=== PATIENT | female | born 1945 | race Caucasian/White ===

== ENCOUNTER 2018-07-13 12:22 | Emergency (ER) | payer MEDICARE, OTHER ==
[~2018-07-13] VITALS: Ht 154.9 cm; Wt 72.6 kg
--- OUTSIDE RECORDS SUMMARY | ~2018-07-13 | XMS | Encounter Summary ---
Demographics + + + | Address | [address] | | | [place] [address] | + + + | Home Phone | | + + + | Preferred Language | Unknown | + + + | Marital Status | | + + + | Restoration Affiliation | MET | + + + | Race | White | + + + | Ethnic Group | Not or | + + + Author + + + | Author | [facility] | + + + | Organization | [facility] | + + + | Address | Unknown | + + + | Phone | Unavailable | + + + Support + + + + + | Name | Relationship | Address | Phone | + + + + + | Garry Rios | ECON | | | | | | [place] | | | | | [address] | | + + + + + | Chad Rios | ECON | Unknown | | + + + + + Care Team Providers + +------+ + | Care Cash Grain Farmer Name | Role | Phone | + +------+ + | Anoop Rose MD | PCP | | + +------+ + Reason for Visit AUTH/CERT +--------+--------+ + + + + | Status | Reason | Specialty | Diagnoses / | Referred By | Referred To | | | | | Procedures | Contact | Contact | +--------+--------+ + + + + | | | | | | | +--------+--------+ + + + + Encounter Details +--------+ + + + + | Date | Type | Department | Care Team | Description | +--------+ + + + + | 12/18/ | Anesthesia | [facility] | Jorge Alberto Uriarte, | | | 2018 | Event | [address] | [address] | | | | | GRISELDA MATTHEWS | [address] | | | | | [facility], | [place], [place] | | | | | [place] [address] | [address] | | | | | | [phone] | | | | | | | | +--------+ + + + + Anesthesia Record + + + + + | Procedure Name | Responsible | Anesthesia Start | Anesthesia Stop Time | | | Anesthesiologist | Time | | + + + + + | DIRECT BROWLIFT WITH | Jorge Alberto Uriarte MD | 12/18/17 1019 | 12/18/17 1057 | | BLEPHAROPLASTY | | | | | (Bilateral Eye) | | | | + + + + + +----+---+ + + | Da | T | Event | Comment | | te | i | | | | | m | | | | | e | | | +----+---+ + + | 11 | 0 | Pt. Check | Prior to anesthesia start, pt. Identified, examined, chart | | /0 | 9 | | reviewed, JUSTEN held, anesthetic plan made or approved by | | 9/ | 2 | | attending anesthesiologist. NPO status confirmed as appropriate | | 20 | 8 | | for procedure Preoperative evaluation: unchanged | | 18 | | | | +----+---+ + + | | 1 | Eq Check | Anesthesia machine checked Equipment verified | | | 0 | | | | | 1 | | | | | 9 | | | +----+---+ + + | | 1 | An Start | | | | 0 | | | | | 1 | | | | | 9 | | | +----+---+ + + | | 1 | An Start | | | | 0 | Data | | | | 1 | | | | | 9 | | | +----+---+ + + | | 1 | O2 by NC | | | | 0 | | | | | 1 | | | | | 9 | | | +----+---+ + + | | 1 | Vitals | Monitors applied Vital signs checked Patient ready for anesthesia | | | 0 | Checked | | | | 2 | | | | | 2 | | | +----+---+ + + | | 1 | Ready | | | | 0 | | | | | 2 | | | | | 2 | | | +----+---+ + + | | 1 | Abx held | Contraindicated, or not indicated for this procedure, or already | | | 0 | Medical or | receiving antibiotics | | | 2 | Surgical | | | | 2 | Reason | | +----+---+ + + | | 1 | Pause | | | | 0 | | | | | 2 | | | | | 2 | | | +----+---+ + + | | 1 | Local | | | | 0 | Anesthetic | | | | 2 | by Surgeon | | | | 3 | | | +----+---+ + + | | 1 | Incision | | | | 0 | | | | | 2 | | | | | 9 | | | +----+---+ + + | | 1 | Local | | | | 0 | Anesthetic | | | | 3 | by Surgeon | | | | 4 | | | +----+---+ + + | | 1 | Surgery end | | | | 0 | | | | | 5 | | | | | 3 | | | +----+---+ + + | | 1 | an stop | | | | 0 | data | | | | 5 | | | | | 5 | | | +----+---+ + + | | 1 | PACU Rpt | | | | 0 | Given | | | | 5 | | | | | 7 | | | +----+---+ + + | | 1 | Anesthesia | | | | 0 | End | | | | 5 | | | | | 7 | | | +----+---+ + + +------+ | Meds | +------+ + +---------+ | Name | Total | + +---------+ | midazolam | 2 mg | + +---------+ | alfentanil | 750 mcg | + +---------+ | dexamethasone | 4 mg | + +---------+ | LR | 200 mL | + +---------+ + + | Name | + + | O2 Flow Rate (Total Liters) | + + + + | No blood administrations on file. | + + +--------+ + + + | Type | Details | Placement | Removal | +--------+ + + + | Periph | 12/18/17; 916; Shadi Chou RN; | 12/18/17916 by | 12/18/171125 by | | eral | Right; Antecubital; 20 g; None; | Cherelle Chou RN | Ira De RN | | IV | No; Positive; 12/18/17; 1126 | | | +--------+ + + + | Incisi | 12/18/17; 1056; Upper; eye; | 12/18/17 1056 by | 12/18/171126 by | | on | 12/18/17; 1126 | Ira De RN | Ira De RN | +--------+ + + + documented in this encounter Social History + +-------+ +--------+------+ | Tobacco Use | Types | Packs/Day | Years | Date | | | | | Used | | + +-------+ +--------+------+ | Never Smoker | | | | | + +-------+ +--------+------+ + +---+---+---+ | Smokeless Tobacco: | | | | | Never Used | | | | + +---+---+---+ + + +---------+ + | Alcohol Use | Drinks/Week | oz/Week | Comments | + + +---------+ + | Yes | | | rare | + + +---------+ + + + + | Sex Assigned at | Date Recorded | | | | + + + | Not on file | | + + + + + + + | Job Start Date | Occupation | Industry | + + + + | Not on file | Not on file | Not on file | + + + + + + + + | Travel History | Travel Start | Travel End | + + + + + + | No recent travel history available. | + + documented as of this encounter Plan of Treatment Not on filedocumented as of this encounter Visit Diagnoses Not on filedocumented in this encounter Administered Medications + +--------+ +---------+------+------+ | Medication Order | MAR | Action | Dose | Rate | Site | | | Action | Date | | | | + +--------+ +---------+------+------+ | alfentanil (ALFENTA) injection | Given | 12/19/19 | 500 mcg | | | | INTRAPROCEDURE PRN, Starting Fri | | 18 10:22 | | | | | 12/18/17 at 1021, Until Fri | | AM PST | | | | | 12/18/17 at 1055 | | | | | | + +--------+ +---------+------+------+ +-------+ +---------+---+---+ | Given | 12/19/19 | 250 mcg | | | | | 18 10:21 | | | | | | AM PST | | | | +-------+ +---------+---+---+ +---+---+ | | | +---+---+ + +-------+ +------+---+---+ | dexamethasone (DECADRON) | Given | 12/19/19 | 4 mg | | | | injection INTRAPROCEDURE PRN, | | 18 10:22 | | | | | Starting 12/18/17 at 1022, | | AM PST | | | | | Until 12/18/17 at 1055 | | | | | | + +-------+ +------+---+---+ +---+---+ | | | +---+---+ + + + +---+---+---+ | lactated Ringers IV | given by | 12/19/19 | | | | | intravenous, INTRAPROCEDURE | | 18 10:43 | | | | | CONTINUOUS PRN, Starting Fri | anesthes | AM PST | | | | | 12/18/17 at 1012, Until Fri | iology | | | | | | 12/18/17 at 1055 | | | | | | + + + +---+---+---+ +---------+ +---+---+---+ | New Bag | 12/19/19 | | | | | | 18 10:12 | | | | | | AM PST | | | | +---------+ +---+---+---+ +---+---+ | | | +---+---+ + +-------+ +------+---+---+ | midazolam (PF) (VERSED) | Given | 12/19/19 | 1 mg | | | | injection intravenous, | | 18 10:34 | | | | | INTRAPROCEDURE PRN, Starting Fri | | AM PST | | | | | 12/18/17 at 1019, Until Fri | | | | | | | 12/18/17 at 1055 | | | | | | + +-------+ +------+---+---+ +-------+ +------+---+---+ | Given | 12/19/19 | 1 mg | | | | | 18 10:19 | | | | | | AM PST | | | | +-------+ +------+---+---+ +---+---+ | | | +---+---+ documented in this encounter"
--- OUTSIDE RECORDS SUMMARY | ~2018-07-13 | XMS | Clinical Summary ---
Demographics + + + | Address | [address] | | | [place] [address] | + + + | Home Phone | | + + + | Preferred Language | Unknown | + + + | Marital Status | | + + + | Pentecostal Affiliation | MET | + + + | Race | White | + + + | Ethnic Group | Not or | + + + Author + + + | Author | [facility] | + + + | Organization | [facility] | + + + | Address | Unknown | + + + | Phone | Unavailable | + + + Support + + + + + | Name | Relationship | Address | Phone | + + + + + | Garry Rios | ECON | | | | | | [place] | | | | | [address] | | + + + + + | Chad Rios | ECON | Unknown | | + + + + + Care Team Providers + +------+ + | Care Orthopedics Nurse Name | Role | Phone | + +------+ + | Anoop Rose MD | PP | | + +------+ + Source Comments CASSIE is fully live on both [facility] and [facility] InPatient.[facility] Allergies No Known Allergies Medications + + + +---------+------+------+-------+ | Medication | Sig | Dispensed | Refills | Star | End | Statu | | | | | | t | Date | s | | | | | | Date | | | + + + +---------+------+------+-------+ | THYROID ORAL | Take by mouth. | | 0 | | | Activ | | | | | | | | e | + + + +---------+------+------+-------+ | omeprazole 20 mg | Take 20 mg by mouth | | 0 | | | Activ | | oral capsule,delayed | once daily. | | | | | e | | release(/EC) | | | | | | | + + + +---------+------+------+-------+ | potassium chloride | Take 20 mEq by mouth | | 0 | | | Activ | | 20 mEq oral packet | once daily. | | | | | e | + + + +---------+------+------+-------+ | | Take 25 mg by mouth | | 0 | | | Activ | | hydroCHLOROthiazide | once daily. | | | | | e | | 25 mg oral tablet | | | | | | | + + + +---------+------+------+-------+ | dilTIAZem 30 mg | Take 30 mg by mouth | | 0 | | | Activ | | oral tablet | three times daily. | | | | | e | + + + +---------+------+------+-------+ | estradiol 1 mg | Take 1 mg by mouth | | 0 | | | Activ | | oral tablet | once daily. | | | | | e | + + + +---------+------+------+-------+ | calcium citrate | Take 950 mg by mouth | | 0 | | | Activ | | 200 mg (950 mg) oral | two times daily. | | | | | e | | tablet | | | | | | | + + + +---------+------+------+-------+ | | Apply a thin film to | 3.5 g | 1 | 11/0 | | Activ | | cinaywmh-tcihhxwqo-p | eyelid incisions | | | 9/20 | | e | | examethasone 3.5 | twice daily for two | | | 18 | | | | mg/g-10,000 | weeks. OK for | | | | | | | unit/g-0.1 % | pharmacist to | | | | | | | ophthalmic (eye) | substitute a | | | | | | | ointment | different ophthalmic | | | | | | | | ointment if needed | | | | | | + + + +---------+------+------+-------+ | | Take 1 tablet by | 10 | 0 | 11/0 | | Activ | | HYDROcodone-acetamin | mouth every four | tablet | | 10/29 | | e | | ophen 5-325 mg oral | hours as needed for | | | 18 | | | | tablet | severe pain. Do not | | | | | | | | exceed 3000mg | | | | | | | | acetaminophen in a | | | | | | | | 24 hour period | | | | | | + + + +---------+------+------+-------+ Active Problems + + + | Problem | Noted Date | + + + | Dermatochalasis of both upper eyelids | 10/27/2017 | + + + | Brow ptosis | 10/27/2017 | + + + Encounters +--------+ + + + + | Date | Type | Specialty | Care Team | Description | +--------+ + + + + | 07/08/ | Telephone | | Jose Luciano MD | | | 2018 | | | | | +--------+ + + + + from Last 3 Months Family History + + +------+ + | Medical History | Relation | Name | Comments | + + +------+ + | Heart defect | Father | | | + + +------+ + | Stroke | Mother | | | + + +------+ + + +------+--------+ + | Relation | Name | Status | Comments | + +------+--------+ + | Father | | | | + +------+--------+ + | Mother | | | | + +------+--------+ + Social History + +-------+ +--------+------+ | Tobacco [...] recent travel history available. | + + Last Filed Vital Signs + + + + + | Vital Sign | Reading | Time Taken | Comments | + + + + + | Blood Pressure | 135/69 | 12/18/2017 11:27 AM | | | | | PST | | + + + + + | Pulse | 61 | 12/18/2017 11:27 AM | | | | | PST | | + + + + + | Temperature | 36.4 C (97.5 F) | 12/18/2017 11:27 AM | | | | | PST | | + + + + + | Respiratory Rate | 16 | 12/18/2017 11:27 AM | | | | | PST | | + + + + + | Oxygen Saturation | 97% | 12/18/2017 11:27 AM | | | | | PST | | + + + + + | Inhaled Oxygen | - | - | | | Concentration | | | | + + + + + | Weight | 70.3 kg (155 lb) | 12/18/2017 9:01 AM | | | | | PST | | + + + + + | Height | 154.9 cm (5' 1") | 12/18/2017 9:01 AM | | | | | PST | | + + + + + | Body Mass Index | 29.29 | 12/18/2017 9:01 AM | | | | | PST | | + + + + + Plan of Treatment + + + + + | Health Maintenance | Due Date | Last Done | Comments | + + + + + | Pneumococcal | | | | | vaccination (1 of 2 | 2 | | | | - PCV13) | | | | + + + + + | Influenza (Flu) | | | | | vaccination (Season | 9 | | | | Ended) | | | | + + + + + Results Not on filefrom Last 3 Months Insurance + +--------+ +--------+ + +--------+ | Payer | Benefi | Subscriber | Effect | Phone | Address | Type | | | t Plan | ID | andree | | | | | | / | | Dates | | | | | | Group | | | | | | + +--------+ +--------+ + +--------+ | MEDICARE | MEDICA | xxxxxxxxxxx | 03/12/19 | [phone] | [address] | [address] | | | RE A & | | 12-Pre | [address] | | | [address] | | sent | | [place] | | | | | | | | [address] | | + +--------+ +--------+ + +--------+ | COMMERCIAL | INDIVI | [phone] | Effect | | | Indemn | | INDIVIDUAL | DUAL | | andree | | | ity | | | COMMER | | for | | | | | | CIAL | | all | | | | | | | | dates | | | | + +--------+ +--------+ + +--------+ + +--------+ +--------+ + + | Guarantor Name | Accoun | Relation to | Date | Phone | Billing Address | | | t Type | Patient | of | | | | | | | | | | + +--------+ +--------+ + + | Kamilah Rios | Person | Self [birth year] | | | al/Fam | | 1946 | [phone] | [place] [address] | | | krista | | | 8 (Home) | | + +--------+ +--------+ + +
--- OUTSIDE RECORDS SUMMARY | ~2018-07-13 | XMS | Encounter Summary ---
Demographics + + + | Address | [address] | | | [place] [address] | + + + | Home Phone | | + + + | Preferred Language | Unknown | + + + | Marital Status | | + + + | Mu-Ism Affiliation | MET | + + + | Race | White | + + + | Ethnic Group | Not or | + + + Author + + + | Author | [facility] | + + + | Organization | [facility] | + + + | Address | Unknown | + + + | Phone | Unavailable | + + + Support + + + + + | Name | Relationship | Address | Phone | + + + + + | Garry Rios | ECON | | | | | | [place] | | | | | [address] | | + + + + + | Chad Rios | ECON | Unknown | | + + + + + Care Team Providers + +------+ + | Care Lead Network Architect Name | Role | Phone | + +------+ + | Anoop Rose MD | PCP | | + +------+ + Encounter Details +--------+ + + + + | Date | Type | Department | Care Team | Description | +--------+ + + + + | 12/22/ | Pharmacy | [facility] | | | | 2018 | Visit | [address] | | | | | | [address] | | | | | | [place], [place] | | | | | | [address] | | | | | | [phone] | | | +--------+ + + + + Social History + +-------+ +--------+------+ | [...] Visit Diagnoses Not on filedocumented in this encounter"
--- OUTSIDE RECORDS SUMMARY | ~2018-07-13 | XMS | Encounter Summary ---
Demographics + + + | Address | [address] | | | [place] [address] | + + + | Home Phone | | + + + | Preferred Language | Unknown | + + + | Marital Status | | + + + | Evangelical Affiliation | MET | + + + | Race | White | + + + | Ethnic Group | Not or | + + + Author + + + | Author | [facility] | + + + | Organization | [facility] | + + + | Address | Unknown | + + + | Phone | Unavailable | + + + Support + + + + + | Name | Relationship | Address | Phone | + + + + + | Garry Rios | ECON | | | | | | [place] | | | | | [address] | | + + + + + | Chad Rios | ECON | Unknown | | + + + + + Care Team Providers + +------+ + | Care Plumbing Engineering Draftsperson Name | Role | Phone | + +------+ + | Unknown | PCP | Unavailable | + +------+ + Encounter Details +--------+ + + + + | Date | Type | Department | Care Team | Description | +--------+ + + + + | 10/20/ | Abstract | [facility] | Jose Luciano MD | | | 2018 | | [facility] | [address] | | | | | Oculoplastics at | [place], [place] | | | | | [address] | [address] | | | | | [address] | [phone] | | | | | Mailcode: [address] | | | | | | [place], [place] | | | | | | [address] | | | | | | [phone] | | | +--------+ + + + + Social History + +-------+ +--------+------+ | Tobacco Use | Types | Packs/Day | Years | Date | | | | | Used | | + +-------+ +--------+------+ | Never Assessed | | | | | + +-------+ +--------+------+ + + + | Sex Assigned at [...]
--- OUTSIDE RECORDS SUMMARY | ~2018-07-13 | XMS | Encounter Summary ---
Demographics + + + | Address | [address] | | | [place] [address] | + + + | Home Phone | | + + + | Preferred Language | Unknown | + + + | Marital Status | | + + + | Zoroastrianism Affiliation | MET | + + + | Race | White | + + + | Ethnic Group | Not or | + + + Author + + + | Author | [facility] | + + + | Organization | [facility] | + + + | Address | Unknown | + + + | Phone | Unavailable | + + + Support + + + + + | Name | Relationship | Address | Phone | + + + + + | Garry Rios | ECON | | | | | | [place] | | | | | [address] | | + + + + + | Chad Rios | ECON | Unknown | | + + + + + Care Team Providers + +------+ + | Care Upholstery Tech Name | Role | Phone | + [...] + + + + | 12/18/ | Hospital | [facility] | Jose Luciano MD | | | 2018 | Encounter | [address] | [address] | | | | | [address] | [address] [place], [place] | | | | | [facility] | [address] | | | | | [place] | [phone] | | | | | [place] [address] | | | | | | [phone] | | | +--------+ + + + [...] + + documented as of this encounter Last Filed Vital Signs + + + [...] | | + + + + + documented in this encounter Discharge Instructions Ira Mccain RN - 12/18/2017[facility] after Eyelid Surgery Do not drive, drink alcoholic beverages, sign legal documents or make major decisions sima barr the next 24 hours. Call your doctor if you notice any unusual symptoms. Remember: You are under the influence of medications. You may resume your normal diet and medications. Caring for Your Eyelid(s) Use ice packs intermittently (10 min. on and 10 min. off) as much as possible for the ne xt 72 hours when awake. Dressing Wear eye patches at night during sleep for protection of incisions Eye Medication Apply eye ointment in both eyes twice a day Apply ointment to suture lines twice a day To help prevent infection: ? Always wash your hands before caring for your eyes or using eye medicine. ? Do not touch any part of your eye skin with the tip of the eye medicine bottle or tube. Avoid the following Rubbing your eye Do not lift anything over 20 lbs Swimming Sports or heavy exercise Eye makeup or lotions around eyes Dust, dirt or sand into the operated area Other Things to Remember Sleep on 2-3 pillows for the next week to minimize swelling Avoid direct sunlight. Wear a wide-brimmed hat or sunglasses if you must go in the sun. Do not use any aspirin, aspirin containing products or anti-inflammatory medications Call your doctor if Temperature above 101 degrees (fever) Purulent drainage (which is drainage that is whitish-bertrand or greenish in color) from the surgical site If there is increased redness at the edges of the surgical site Increased pain, even with pain medication Increasing pain, swelling or redness Any visual changes, some blurring is normal Extreme swelling, some swelling is normal How to reach your doctor Thursday through Thursday, 8am-5pm, call All other hours including after hours, weekends and holidays, call and as k the gill box operator to page the Eye Doctor simulation analyst. Return appointment date: Jose Luciano MD Thursday at 9:10 AM documented in this encounter Medications at Time of Discharge + + + +---------+ + + | Medication | Sig | Dispensed | Refills | Start | End Date | | | | | | Date | | + + + +---------+ + + | calcium citrate | Take 950 mg by mouth | | 0 | | | | 200 mg (950 mg) oral | two times daily. | | | | | | tablet | | | | | | + + + +---------+ + + | dilTIAZem 30 mg | Take 30 mg by mouth | | 0 | | | | oral tablet | three times daily. | | | | | + + + +---------+ + + | estradiol 1 mg | Take 1 mg by mouth | | 0 | | | | oral tablet | once daily. | | | | | + + + +---------+ + + | | Take 25 mg by mouth | | 0 | | | | hydroCHLOROthiazide | once daily. | | | | | | 25 mg oral tablet | | | | | | + + + +---------+ + + | | Take 1 tablet by | 10 | 0 | 12/19/19 | | | HYDROcodone-acetamin | mouth every four | tablet | | 18 | | | ophen 5-325 mg oral | hours as needed for | | | | | | tablet | severe pain. Do not | | | | | | | exceed 3000mg | | | | | | | acetaminophen in a | | | | | | | 24 hour period | | | | | + + + +---------+ + + | | Apply a thin film to | 3.5 g | 1 | 12/19/19 | | | wukvfota-nlhpgubcl-g | eyelid incisions | | | 18 | | | examethasone 3.5 | twice daily for two | | | | | | mg/g-10,000 | weeks. OK for | | | | | | unit/g-0.1 % | pharmacist to | | | | | | ophthalmic (eye) | substitute a | | | | | | ointment | different ophthalmic | | | | | | | ointment if needed | | | | | + + + +---------+ + + | omeprazole 20 mg | Take 20 mg by mouth | | 0 | | | | oral capsule,delayed | once daily. | | | | | | release(/MADDIE) | | | | | | + + + +---------+ + + | potassium chloride | Take 20 mEq by mouth | | 0 | | | | 20 mEq oral packet | once daily. | | | | | + + + +---------+ + + | THYROID ORAL | Take by mouth. | | 0 | | | + + + +---------+ + + documented as of this encounter Plan of Treatment Not on filedocumented as of this encounter Procedures + +--------+ + + + | Procedure Name | Priori | Date/Time | Associated Diagnosis | Comments | | | ty | | | | + +--------+ + + + | PROCEDURE NOTE | Routin | 12/18/2017 | | Results for this | | | e | 11:08 AM | | procedure are in the | | | | PST | | results section. | + +--------+ + + + | DIRECT BROWLIFT WITH | Electi | 12/18/2017 | Dermatochalasis of | | | BLEPHAROPLASTY | ve | 10:19 AM | both upper eyelids | | | | Surgic | PST | Brow ptosis | | | | al | | | | + +--------+ + + + +---+--------+ | | | | | Specia | | | l | | | Needs | | | CO2 | | | LASER | +---+--------+ documented in this encounter Results PROCEDURE NOTE (12/18/2017 11:08 AM PST) + + + | Narrative | Performed At | + + + | Jose Luciano MD 12/18/2017 11:08 AM Date of procedure: | | | 12/18/17 Attending Surgeon: Jose Luciano M.D. Preoperative | | | Diagnosis: 1. Bilateral brow ptosis 2. Bilateral upper lid | | | dermatochalasis Postoperative Diagnosis: 1. Bilateral brow | | | ptosis 2. Bilateral upper lid dermatochalasis Procedure: 1. | | | Bilateral direct brow lift 2. Bilateral upper lid blepharoplasty | | | Anesthesia: Local infiltration of a 1:1 mixture of 2% lidocaine with | | | epinephrine 1:100,000 and 0.5% Marcaine with Monitored Anesthesia | | | Care Estimated Blood Loss: Minimal Complications: None | | | Specimens: none Indications: This is a patient with bilateral | | | brow ptosis and upper lid dermatochalasis interfering with vision. | | | The procedure, alternatives and risks were discussed with the | | | patient at length, and the patient decided to proceed with surgery | | | as described below. The potential for prominent, permanent forehead | | | scars was discussed at length with the patient. Procedure: | | | Prior to the procedure, the operative plan and correct site were | | | confirmed by the surgeon. The patient was placed in the supine | | | position on the operating table. Attention was directed to the | | | temporal aspect of the brows, where a skin marking pen was used to | | | mary carmen a supraciliary incision, and to the upper lids, where the | | | natural lid crease was marked. The amount of skin to be removed was | | | judged a ellipse was marked on each side. These areas were | | | infiltrated with the above named local anesthetic solution. | | | Attention was first directed to the left brow, where the CO2 laser | | | was used to incise the skin as marked. A sharp scissors was used to | | | excise a skin-fat flap, and meticulous hemostasis was maintained at | | | all times with judicious use of the cautery. Dissection continued | | | down to the orbital rim, where the arcus marginalis was released, | | | permitting elevation of the brow. The brow was lifted and secured to | | | the periosteum of the forehead with multiple 5-0 vicryl | | | sutures. The wound was then closed with multiple interrupted 5-0 | | | vicryl sutures in a layered, buried fashion. The skin was then | | | closed with a running horizontal mattress 5-0 fast absorbing gut | | | suture to laci the wound edges. Attention was then directed to | | | the right brow, where the CO2 laser was used to incise the skin as | | | marked. A sharp scissors was used to excise a skin-fat flap, and | | | meticulous hemostasis was maintained at all times with judicious use | | | of the cautery.Dissection continued down to the orbital rim, where | | | the arcus marginalis was released, permitting elevation of the brow. | | | The brow was lifted and secured to the periosteum of the forehead | | | with multiple 5-0 vicryl sutures. The wound was then closed | | | with multiple interrupted 5-0 vicryl sutures in a layered, buried | | | fashion. The skin was then closed with a running horizontal mattress | | | 5-0 fast absorbing gut suture to laci the wound edges. This | | | provided a nice symmetric elevation of the brows. Attention was | | | then directed to the right and left upper lids, where the amount of | | | skin to be removed with the blepharoplasty was marked using a | | | calipers. Eye gallardo were placed and removed before the end of the | | | case. Attention was first directed to the right upper lid, where | | | the skin incisions were made with the CO2 laser. A high-temperature | | | cautery unit was used to excise a skin-muscle flap, and meticulous | | | hemostasis was maintained with judicious use of the cautery. The | | | orbital septum was incised,, and the central and nasal fat pads | | | were conservatively debulked. After meticulous hemostasis was | | | confirmed, the skin was closed with a running 5-0 fast absorbing gut | | | suture. Attention was then directed to the left upper lid where | | | the skin incisions were made with the CO2 laser. A high-temperature | | | cautery unit was used to excise a skin-muscle flap, and meticulous | | | hemostasis was maintained with judicious use of the cautery. The | | | orbital septum was incised, and the central and nasal fat pads were | | | conservatively debulked. After meticulous hemostasis was confirmed, | | | the skin was closed with a running 5-0 fast absorbing gut suture. | | | The drapes were removed, surgical area cleaned, and ophthalmic | | | ointment was applied to the wounds. The patient was awakened and | | | transported to the recovery room, having tolerated the procedure | | | well. Jose Luciano M.D. Drive Thru Order Taker Ophthalmic | | | Facial Plastic and Reconstructive Surgery | | + + + documented in this encounter Visit Diagnoses + + | Diagnosis | + + | Degenerative disorder of eyelid Unspecified degenerative disorder of eyelid | + + documented in this encounter Administered Medications + +--------+---------+------+------+------+ | Medication Order | MAR | Action | Dose | Rate | Site | | | Action | Date | | | | + +--------+---------+------+------+------+ + +---+ | HYDROcodone-acetaminophen | | | (NORCO) 5-325 mg tablet 1-2 | | | tablet 1-2 tablet, oral, | | | NEEDED, 1 dose, Starting Fri | | | 12/18/17 at 1101, Until Fri | | | 12/18/17 at 1733, post-op moderate | | | pain | | + +---+ | | | + +---+ + +---------+ + + +---+ | lactated Ringers IV 10 mL/hr, | New Bag | 12/19/19 | 10 mL/hr | 10 mL/hr | | | intravenous, CONTINUOUS, Starting | | 18 9:16 | | | | | 12/18/17 at 0930, Until Fri | | AM PST | | | | | 12/18/17 at 1733 | | | | | | + +---------+ + + +---+ + +---+ | | | + +---+ | oxyCODONE (immediate release) | | | (ROXICODONE) tablet 5-10 mg 5-10 | | | mg, oral, NEEDED, 1 dose, | | | Starting 12/18/17 at 1101, | | | Until 12/18/17 at 1733, | | | post-op severe pain | | + +---+ | | | + +---+ documented in this encounter
--- OUTSIDE RECORDS SUMMARY | ~2018-07-13 | XMS | Clinical Summary ---
Demographics + + + | Address | [address] | | | [place] [address] | + + + | Home Phone | | + + + | Preferred Language | Unknown | + + + | Marital Status | | + + + | Alevism Affiliation | MET | + + + | Race | White | + + + | Ethnic Group | Not or | + + + Author + + + | Author | [facility] | + + + | Organization | [facility] | + + + | Address | Unknown | + + + | Phone | Unavailable | + + + Support + + + + + | Name | Relationship | Address | Phone | + + + + + | Garry Rios | ECON | | | | | | [place] | | | | | [address] | | + + + + + | Chad Rios | ECON | Unknown | | + + + + + Care Team Providers + +------+ + | Care Mitochondrial Disorders Counselor Name | Role | Phone | + +------+ + | Anoop Rose MD | PP | | + +------+ + Source Comments CASSIE is fully live on both [facility] and [facility] Allergies No Known Allergies Medications + + [...] | 11/0 | | Activ | | wuahyzhs-[id number]-[id number] | eyelid incisions | | | 9/20 [...] | | | | | | | [address] | | + +--------+ +--------+ + +--------+ [...] | 1946 | [phone] | [place] [address] | | | krista | | | [address] (Home) | | + +--------+ +--------+ + +
--- OUTSIDE RECORDS SUMMARY | ~2018-07-13 | XMS | Encounter Summary ---
Demographics + + + | Address | [address] | | | [place] [address] | + + + | Home Phone | | + + + | Preferred Language | Unknown | + + + | Marital Status | | + + + | Jewish Affiliation | MET | + + + | Race | White | + + + | Ethnic Group | Not or | + + + Author + + + | Author | [facility] | + + + | Organization | [facility] | + + + | Address | Unknown | + + + | Phone | Unavailable | + + + Support + + + + + | Name | Relationship | Address | Phone | + + + + + | Garry Rios | ECON | | | | | | [place] | | | | | [address] | | + + + + + | Chad Rios | ECON | Unknown | | + + + + + Care Team Providers + +------+ + | Care Sink Cutter Name | Role | Phone | + [...] [address] | | | | | | [place], [place] | | | | | | [address] | | | | | | [phone] | | | +--------+ + + + [...]
--- OUTSIDE RECORDS SUMMARY | ~2018-07-13 | XMS | Encounter Summary ---
Demographics + + + | Address | [address] | | | [place] [address] | + + + | Home Phone | | + + + | Preferred Language | Unknown | + + + | Marital Status | | + + + | Synagogue Affiliation | MET | + + + | Race | White | + + + | Ethnic Group | Not or | + + + Author + + + | Author | [facility] | + + + | Organization | [facility] | + + + | Address | Unknown | + + + | Phone | Unavailable | + + + Support + + + + + | Name | Relationship | Address | Phone | + + + + + | Garry Rios | ECON | | | | | | [place] | | | | | [address] | | + + + + + | Chad Rios | ECON | Unknown | | + + + + + Care Team Providers + +------+ + | Care Coremaker Bench Name | Role | Phone | + [...] +--------+--------+ + + + + Encounter Details +--------+---------+ + + + | Date | Type | Department | Care Team | Description | +--------+---------+ + + + | 12/18/ | Surgery | [facility] | Jose Luciano MD | BILATERAL DIRECT | | 2018 | | [address] | [address] | BROW LIFT | | | | [address] [place] | [address] [place], [place] | (TEMPORAL); | | | | [facility], | [address] | BILATERAL UPPER LID | | | | [place] [address] | [phone] | BLEPHAROPLASTY (CO2 | | | | | | LASER) | +--------+---------+ + + + Social History + +-------+ [...] + documented in this encounter Discharge Instructions Instructions Ira De RN - 12/18/2017Home Care after Eyelid Surgery Do not drive, [...] and holidays, call and as k the photocomposition keyboard operator to page the Eye Doctor resource paraprofessional. Return appointment date: Jose Luciano MD Thursday [...] | 1 | 12/19/19 | | | [id number]-hwrkkdtuv-[id number] | eyelid incisions | | | 18 [...] daily. | | | | | | release(DR/EC) | | | | | | + [...] | | | well. Jose Luciano M.D. Tractor Driver Teamster Ophthalmic | | | Facial Plastic and Reconstructive Surgery | | + + + documented in this encounter Visit Diagnoses + + | Diagnosis | + + | Dermatochalasis of both upper eyelids | + + | Brow ptosis Unspecified ptosis of eyelid | + + documented in [...] +---+ | | | + +---+ + +-------+ +--------+---+ + | lactated Ringers irrigation | Given | 12/19/19 | 200 mL | | Surgical | | INTRAPROCEDURE PRN, Starting Fri | | 18 10:30 | | | Site | | 12/18/17 at 1030, Until Fri | | AM PST | | | | | 12/18/17 at 1055 | | | | | | + +-------+ +--------+---+ + +---+---+ | | | +---+---+ + +---------+ + + +---+ | lactated [...] | | + +---------+ + + +---+ +---+---+ | | | +---+---+ + +-------+ +---------+---+ + | | Given | 12/19/19 | 1 strip | | Surgical | | ejhvppco-yqecirvev-ygxgiezpoljgt | | 18 10:30 | | | Site | | (MAXITROL) 3.5 mg/g-10,000 | | AM PST | | | | | unit/g-0.1 % ophthalmic ointment | | | | | | | INTRAPROCEDURE PRN, Starting Fri | | | | | | | 12/18/17 at 1030, Until Fri | | | | | | | 12/18/17 at 1055 | | | | | | + +-------+ +---------+---+ + +---+---+ | | | +---+---+ + +-------+ +------+---+ + | Oculoplastics Local with | Given | 12/19/19 | 4 mL | | Surgical | | hyaluronidase: lidocaine w/ EPI | | 18 10:30 | | | Site | | 1%-1:731620 - bupivacaine 0.5% | | AM PST | | | | | (1:1) - hyaluronidase 150 | | | | | | | units/mL 1 mL INTRAPROCEDURE | | | | | | | PRN, Starting 12/18/17 at | | | | | | | 1030, Until 12/18/17 at 1055 | | | | | | + +-------+ +------+---+ + +-------+ +------+---+ + | Given | 12/19/19 | 3 mL | | Surgical | | | 18 10:28 | | | Site | | | AM PST | | | | +-------+ +------+---+ + + +---+ | | | + +---+ | oxyCODONE (immediate release) | | | (ROXICODONE) tablet 5-10 mg 5-10 | | | mg, oral, NEEDED, 1 dose, | | | Starting Thu12/18/17 at 1101, | | | Until Thu12/18/17 at 1733, | | | post-op severe pain | | + +---+ | | | + +---+ + +-------+ +---------+---+-------+ | proparacaine (OPHTHAINE) 0.5 % | Given | 12/19/19 | 2 drops | | Both | | ophthalmic drops INTRAPROCEDURE | | 18 10:30 | | | Eyes | | PRN, Starting Thu12/18/17 at | | AM PST | | | | | 1030, Until Thu12/18/17 at 1055 | | | | | | + +-------+ +---------+---+-------+ +---+---+ | | | +---+---+ documented in this encounter
--- OUTSIDE RECORDS SUMMARY | ~2018-07-13 | XMS | Encounter Summary ---
Demographics + + + | Address | [address] | | | [place] [address] | + + + | Home Phone | | + + + | Preferred Language | Unknown | + + + | Marital Status | | + + + | Church Affiliation | MET | + + + [...] [place] | | | | | [address] | | + + + + + | Chad Rios | ECON | Unknown | | + + + + + Care Team Providers + +------+ + | Care Service Station Cashier Name | Role | Phone | + +------+ + | Anoop Rose MD | PCP | | + +------+ + Encounter Details +--------+ + + + + | Date | Type | Department | Care Team | Description | +--------+ + + + + | 12/18/ | Pharmacy | [facility] | | | | 2018 | Visit | [address] | | | | | | [address] | | | | | | [place], [place] | | | | | | [address] | | | | | | [phone] | | | +--------+ + + + [...]
--- OUTSIDE RECORDS SUMMARY | ~2018-07-13 | XMS | Encounter Summary ---
Demographics + + + | Address | [address] | | | [place] [address] | + + + | Home Phone | | + + + | Preferred Language | Unknown | + + + | Marital Status | | + + + | Yarsanism Affiliation | MET | + + + | Race | White | + + + | Ethnic Group | Not or | + + + Author + + + | Author | [facility] | + + + | Organization | [facility] | + + + | Address | Unknown | + + + | Phone | Unavailable | + + + Support + + + + + | Name | Relationship | Address | Phone | + + + + + | Garry Rios | ECON | | | | | | [place] | | | | | [address] | | + + + + + | Chad Rios | ECON | Unknown | | + + + + + Care Team Providers + +------+ + | Care Community Recreation Coordinator Name | Role | Phone | + +------+ + | Anoop Rose MD | PCP | | + +------+ + Encounter Details +--------+---------+ + + + | Date | Type | Department | Care Team | Description | +--------+---------+ + + + | 12/29/ | Office | [facility] | Jose Luciano MD | Dermatochalasis of | | 2018 | Visit | [facility] | [address] | both upper eyelids | | | | [address] | [address] [place], [place] | (Primary Dx) | | | | [facility] | [address] | | | | | [facility] | [phone] | | | | | [place], [place] | | | | | | [address] | | | | | | [phone] | | | +--------+---------+ + + + Social History [...] + + documented as of this encounter Progress Notes Jose Luciano MD - 12/29/2017 2:40 PM PSTFormatting of this note might be different from t he original. Kamilah Rios is a 72 y.o. female. Referred by: Navneet Pacheco Pain: No pain (0 of 0-10) Patient is here 11 days s/p Procedure: 12/18/17 Dr. Luciano 1. Bilateral direct brow lift 2. Bilateral upper lid blepharoplasty Patient doing well, already pleased with the improvement in vision. No concerns. Exam: Vision intact Lid Measurements: RE (mm) LE (mm) Sup SS Crease HT VPF 8 8 LF MRDI 3 3 Inf SS Lag 0 0 Incisions healing well Expected postop edema, ecchymosis SLE: C/S quiet OU K clear OU AC D&Q OU Iris nl OU Impression: 1. Doing well 11 days s/p bilateral direct brow lift, bilateral upper lid blepharoplasty 2. History of bilateral brow ptosis, visually significant, with temporal hooding affecting lateral gaze 3. History of bilateral upper lid dermatochalasis, visually significant Plan: Reviewed po instructions F/u with Dr. Pacheco for eye care RTC with ga prn Physician attestation: I have reviewed and edited history and hvac field service technician documentation, and performed all elements to above examination documentation. Jose Luciano M.D. Waiter/Waitress Formal Ophthalmic Facial Plastic and Reconstructive Surgery documented in this encounter Plan of Treatment Not on filedocumented as of this encounter Visit Diagnoses + + | Diagnosis | + + | Dermatochalasis of both upper eyelids - Primary | + + documented in this encounter"
--- OUTSIDE RECORDS SUMMARY | ~2018-07-13 | XMS | Encounter Summary ---
Demographics + + + | Address | [address] | | | [place] [address] | + + + | Home Phone | | + + + | Preferred Language | Unknown | + + + | Marital Status | | + + + | Druze Affiliation | MET | + + + | Race | White | + + + | Ethnic Group | Not or | + + + Author + + + | Author | [facility] | + + + | Organization | [facility] | + + + | Address | Unknown | + + + | Phone | Unavailable | + + + Support + + + + + | Name | Relationship | Address | Phone | + + + + + | Garry Rios | ECON | | | | | | [place] | | | | | [address] | | + + + + + | Chad Rios | ECON | Unknown | | + + + + + Care Team Providers + +------+ + | Care Collections Clerk Name | Role | Phone | + [...] | [address] | [address] | | | | | [address] | [address] | | | | | [facility], | [place], [place] | | | | | [place] [address] | [address] | | | | | | [phone] | | | | | | | [...]
--- OUTSIDE RECORDS SUMMARY | ~2018-07-13 | XMS | Encounter Summary ---
Demographics + + + | Address | [address] | | | [place] [address] | + + + | Home Phone | | + + + | Preferred Language | Unknown | + + + | Marital Status | Unknown | + + + | Shinto Affiliation | Unknown | + + + | Race | Unknown | + + + | Ethnic Group | Unknown | + + + Author + + + | Author | [facility] | + + + | Organization | [facility] | + + + | Address | Unknown | + + + | Phone | Unavailable | + + + Care Team Providers + +------+ + | Care Biztalk Consultant Name | Role | Phone | + +------+ + PCP | Unavailable | + +------+ + Encounter Details +--------+ + + + + | Date | Type | Department | Care Team | Description | +--------+ + + + + | 07/12/ | Documentati | [facility] | Mignon Marks DO | | | 2019 | on Only | [facility] | [address] | | | | | [address] | [place], [place] | | | | | [place], [place] | [address] | | | | | [address] | | | | | | [phone] | | | +--------+ + + + [...] on file | | + + + as of this encounter Plan of Treatment Not on fileas of this encounter Visit Diagnoses Not on filein this encounter"
--- OUTSIDE RECORDS SUMMARY | ~2018-07-13 | XMS | Encounter Summary ---
Demographics + + + | Address | [address] | | | [place] [address] | + + + | Home Phone [...] + + + | Author | [facility] | + + + | Organization | [facility] | + + + | Address | Unknown | + + + | Phone | Unavailable | + + + Support + + + + + | Name | Relationship | Address | Phone | + + + + + | Garry Rios | ECON | | | | | | [place] | | | | | [address] | | + + + + + | Chad Rios | ECON | Unknown | | + + + + + Care Team Providers + +------+ + | Care Director Of Individual Giving Name | Role | Phone | + [...] | | | [address] | [address] [place], [place] | (TEMPORAL); | | | | [facility], | [address] | BILATERAL UPPER LID | | | | [place] [address] | [phone] | BLEPHAROPLASTY (CO2 | | | | [...] and holidays, call and as k the hand spray operator to page the Eye Doctor senior qa automation engineer. Return appointment date: Jose Luciano MD Thursday [...] | 1 | 12/19/19 | | | [id number] | eyelid incisions | | | 18 [...] | | | well. Jose Luciano M.D. Cracking Machine Operator Ophthalmic | | | Facial Plastic and [...] 1 strip | | Surgical | | [id number] | | 18 10:30 | | | [...] 10:30 | | | Site | | [id number] - bupivacaine 0.5% | | AM PST [...]
--- OUTSIDE RECORDS SUMMARY | ~2018-07-13 | XMS | Encounter Summary ---
Demographics + + + | Address | [address] | | | [place] [address] | + + + | Home Phone | | + + + | Preferred Language | Unknown | + + + | Marital Status | | + + + | Buddhism Affiliation | MET | + + + | Race | White | + + + | Ethnic Group | Not or | + + + Author + + + | Author | [facility] | + + + | Organization | [facility] | + + + | Address | Unknown | + + + | Phone | Unavailable | + + + Support + + + + + | Name | Relationship | Address | Phone | + + + + + | Garry Rios | ECON | | | | | | [place] | | | | | [address] | | + + + + + | Chad Rios | ECON | Unknown | | + + + + + Care Team Providers + +------+ + | Care Master Esthetician Name | Role | Phone | + [...] [address] | | | | | | [place], [place] | | | | | | [address] | | | | | | [phone] | | | +--------+ + + + [...]
--- OUTSIDE RECORDS SUMMARY | ~2018-07-13 | XMS | Encounter Summary ---
Demographics + + + | Address | [address] | | | [place] [address] | + + + | Home Phone | | + + + | Preferred Language | Unknown | + + + | Marital Status | | + + + | Scientologist Affiliation | MET | + + + | Race | White | + + + | Ethnic Group | Not or | + + + Author + + + | Author | [facility] | + + + | Organization | [facility] | + + + | Address | Unknown | + + + | Phone | Unavailable | + + + Support + + + + + | Name | Relationship | Address | Phone | + + + + + | Garry Rios | ECON | | | | | | [place] | | | | | [address] | | + + + + + | Chad Rios | ECON | Unknown | | + + + + + Care Team Providers + +------+ + | Care Director Mba Name | Role | Phone | + +------+ + | Anoop Rose MD | PCP | | + +------+ + Encounter Details +--------+---------+ + + + | Date | Type | Department | Care Team | Description | +--------+---------+ + + + | 10/27/ | Office | [facility] | Jose Luciano MD | Dermatochalasis of | | 2018 | Visit | [facility] | [address] | both upper eyelids | | | | [address] | [address] [place], [place] | (Primary Dx); Brow | | | | [address] [place] | [address] | ptosis | | | | [facility] | [phone] | | | | | [place], [place] | | | | | | [address] | | | | | | [phone] | | | +--------+---------+ + + + [...] | | | + +---+---+---+ + + + | Sex Assigned at [...] documented as of this encounter Progress Notes Sabina Cazares - 10/27/2017 11:20 AM PDT12/18/17 [facility] Bilateral direct brow lif t (temporal); MAC Bilateral upper lid blepharoplasty Needs consent Gave LTP H&P w/ PCP HR post-op hMary dennis - 10/27 11:20 AM PDT Kamilah Rios is a 72 y.o. Female accompanied today by her Referred by: Navneet Pacheco Pain: No pain (0 of 0-10) Patient is referred for evaluation of progressively droopy eyelids that interfere with visi on. This is bothersome all the time, interferes with the peripheral vision, especially notic es it when reading and driving, very bothersome. She notes she can see much better if she manually holds the saggy skin up Denies myasthenia gravis symptoms, no current thyroid issues. Review of systems: Medications, allergies, medical, surgical and family history were review ed by me at this visit utilizing a written patient history form. Pertinent positives noted in history. All else unless noted was negative (fever, wt. change, ENT, cardiovascular, respiratory, GI , urinary, skin, muscle, bones, joints, neurologic, behavioral,endocrine, psychiatric, bleed ing/blood disorders, AIDS/HIV, cancer or tumors, arthritis) Pertinent positives in the family history noted in history. All else unless noted was negative (endocrine, cancer or tumors, cardiovascular, cataracts, retina, strabismus, amblyopia, low vision or blindness, refractive error, glaucoma, color o r night blindness or unexplained vision loss). Exam: The patient is alert and oriented x 3. Visual Acuity: Junior Vacc PH RE LE 20/25 20/25 Pupil Exam: PERRL No APD Motility: RE LE 0 0 0 0 0 0 0 0 Lid Measurements: RE (mm) LE (mm) Sup SS Crease HT VPF 6 6 LF 15 15 MRDI 1 1 Inf SS Lag 0 0 The MRD1 improves when the weight of the dermatochalasis is manually elevated. Facial Exam: Brow ptosis compensated by frontalis effort Heavy brows with temporal hooding, affecting lateral gaze Bilateral upper lid dermatochalasis with skin resting on lashes and mechanical ptosis Adenopathy: None SLE: C/S quiet without masses OU K clear without infiltrate OU AC Deep and quiet OU Iris without neovascularization OU Lens PCIOL OU Ta 12 OD 12 OS Posterior segment: M&N OU @ 11:35 Vitreous: clear, both eyes. Fundus: Optic disc: 0.3 cup/disc ratio, pink, flat, both eyes. Macula: no edema or exudates, both eyes. Vessels: no notching or hemorrhage, both eyes. Periphery: flat 360 without breaks or tears, both eyes. Basal Tear Secretion Test: RE 21, LE 21 External photos taken OU today. Photos demonstrate bilateral upper lid dermatochalasis Visual field testing today with Goldmann III4e untaped and taped shows an improvement from 10 degrees above the horizon to 46 degrees OD and 13 degrees to 51 degrees OS. Impression: Bilateral brow ptosis, visually significant, with temporal hooding affecting lateral gaze Bilateral upper lid dermatochalasis, visually significant Plan: Bilateral direct brow lift (temporal) Bilateral upper lid blepharoplasty MAC Discussed endoscopic forehead lift, patient not interested (cosmetic) GA The procedure, alternatives and risks were discussed with the patient, including potential need for additional surgery, bleeding, infection, vision loss including blindness, pain, ner ve damage, and asymmetry. Questions were answered and patient wishes to proceed with surgery . No anticoagulants including aspirin, NSAIDS, vitamin E, HERBS, etc. perioperatively. Encour aged patient to check with PCP regarding prescription anticoagulant use prior to surgery. We discussed that if the patient needs to stay on anticoagulants perioperatively, the patient understands and accepts the increased risk of complications. Physician attestation: I have reviewed and edited history and porcelain technician documentation, and performed all elements to above examination documentation. Jose Luciano M.D. Rug Layer Ophthalmic Facial Plastic and Reconstructive Surgery documented in this encounter Plan of Treatment Not on filedocumented as of this encounter Procedures + +--------+ + + + | Procedure Name | Priori | Date/Time | Associated Diagnosis | Comments | | | ty | | | | + +--------+ + + + | [place] VISUAL FIELD | Routin | 10/27/2017 | Dermatochalasis of | | | EXAM, LIMITED | e | 11:58 AM | both upper eyelids | | | | | PDT | Brow ptosis | | + +--------+ + + + | VT EXTERNAL PHOTOS | Routin | 10/27/2017 | Dermatochalasis of | | | | e | 11:58 AM | both upper eyelids | | | | | PDT | Brow ptosis | | + +--------+ + + + documented in this encounter Visit Diagnoses + + | Diagnosis | + + | Dermatochalasis of both upper eyelids - Primary | + + | Brow ptosis Unspecified ptosis of eyelid | + + documented in this encounter"
--- OUTSIDE RECORDS SUMMARY | ~2018-07-13 | XMS | Encounter Summary ---
Demographics + + + | Address | [address] | | | [place] [address] | + + + | Home Phone | | + + + | Preferred Language | Unknown | + + + | Marital Status | | + + + | Denominational Affiliation | MET | + + + | Race | White | + + + | Ethnic Group | Not or | + + + Author + + + | Author | [facility] | + + + | Organization | [facility] | + + + | Address | Unknown | + + + | Phone | Unavailable | + + + Support + + + + + | Name | Relationship | Address | Phone | + + + + + | Garry Rios | ECON | | | | | | [place] | | | | | [address] | | + + + + + | Chad Rios | ECON | Unknown | | + + + + + Care Team Providers + +------+ + | Care Port Engineer Name | Role | Phone | + +------+ + | Anoop Rose MD | PCP | | + +------+ + Encounter Details +--------+ + + + + | Date | Type | Department | Care Team | Description | +--------+ + + + + | 12/19/ | Telephone | [facility] | Jose Luciano MD | | | 2018 | | [place] | [address] | | | | | Oculoplastics at | Blvd [place], [place] | | | | | [address] | [address] | | | | | [address] | [phone] | | | | | Mailcode: [facility] | | | | | | [place], [place] | | | | | | [address] | | | | | | [phone] | | | +--------+ + + + [...]
--- OUTSIDE RECORDS SUMMARY | ~2018-07-13 | XMS | Clinical Summary ---
Demographics + + + | Address | [address] | | | [place] [address] | + + + | Home Phone | | + + + | Preferred Language | Unknown | + + + | Marital Status | Unknown | + + + | Catholic Affiliation | Unknown | + + + | Race | Unknown | + + + | Ethnic Group | Unknown | + + + Author + + + | Author | [facility] | + + + | Organization | [facility] [employer] | + + + | Address | Unknown | + + + | Phone | Unavailable | + + + Care Team Providers + +------+ + | Care Front Desk Clerk Name | Role | Phone | + +------+ + PP | Unavailable | + +------+ + Allergies Not on File Current Medications Not on file Active Problems Not on file Encounters +--------+ + + + + | Date | Type | Specialty | Care Team | Description | +--------+ + + + + | 07/12/ | Documentati | | Mignon Marks DO | | | 2019 | on Only | | | | +--------+ + + + + from Last 3 Months Social History + +-------+ +--------+------+ | Tobacco [...] on file | | + + + Plan of Treatment Not on file Results Not on filefrom Last 3 Months"
--- OUTSIDE RECORDS SUMMARY | ~2018-07-13 | XMS | Encounter Summary ---
Demographics + + + | Address | [address] | | | [place] [address] | + + + | Home Phone | | + + + | Preferred Language | Unknown | + + + | Marital Status | Unknown | + + + | Sabianism Affiliation | Unknown | + + + | Race | Unknown | + + + | Ethnic Group | Unknown | + + + Author + + + | Author | [email or web address] | + + + | Organization | [email or web address] | + + + | Address | Unknown | + + + | Phone | Unavailable | + + + Care Team Providers + +------+ + | Care Customer Service Voice Name | Role | Phone | + +------+ + PCP | Unavailable | + +------+ + Encounter Details +--------+ + + + + | Date | Type | Department | Care Team | Description | +--------+ + + + + | 07/12/ | Documentati | [facility] | Mignon Makrs DO | | | 2019 | on Only | [facility] [place] | [address] | | | | | [address] | [place], [place] | | | | | [place], [place] | [address] | | | | | [address] | | | | | | [phone] | | | +--------+ + + + [...]
--- OUTSIDE RECORDS SUMMARY | ~2018-07-13 | XMS | Clinical Summary ---
Demographics + + + | Address | [address] | | | [place] [address] | + + + | Home Phone | | + + + | Preferred Language | Unknown | + + + | Marital Status | Unknown | + + + | Bahai Affiliation | Unknown | + + + | Race | Unknown | + + + | Ethnic Group | Unknown | + + + Author + + + | Author | [facility] | + + + | Organization | [facility] [employer] | + + + | Address | Unknown | + + + | Phone | Unavailable | + + + Care Team Providers + +------+ + | Care Visiting Professor Name | Role | Phone | + [...]
--- OUTSIDE RECORDS SUMMARY | ~2018-07-13 | XMS | Encounter Summary ---
Demographics + + + | Address | [address] | | | [place] [address] | + + + | Home Phone | | + + + | Preferred Language | Unknown | + + + | Marital Status | | + + + | Episcopalian Affiliation | MET | + + + | Race | White | + + + | Ethnic Group | Not or | + + + Author + + + | Author | [facility] | + + + | Organization | [facility] | + + + | Address | Unknown | + + + | Phone | Unavailable | + + + Support + + + + + | Name | Relationship | Address | Phone | + + + + + | Garry Rios | ECON | | | | | | [place] | | | | | [address] | | + + + + + | Chad Rios | ECON | Unknown | | + + + + + Care Team Providers + +------+ + | Care Director Process Engineering Name | Role | Phone | + +------+ + | Anoop Rose MD | PCP | | + +------+ + Reason for Visit + + + | Reason | Comments | + + + | Visual field testing | | + + + Encounter Details +--------+ + + + + | Date | Type | Department | Care Team | Description | +--------+ + + + + | 10/27/ | Documentati | [facility] | Jose Luciano MD | Visual field testing | | 2018 | on | [place] | [address] | | | | | Oculoplastics at | [place], [place] | | | | | [place] [address] [address] | [address] | | | | | [address] [facility] | [phone] | | | | | Mailcode: [facility] | | | | | | [place], [place] | | | | | | [address] | | | | | | [phone] | | | +--------+ + + + [...]
--- OUTSIDE RECORDS SUMMARY | ~2018-07-13 | XMS | Encounter Summary ---
Demographics + + + | Address | [address] | | | [place] [address] | + + + | Home Phone [...] Author | [facility] | + + + | Organization | [facility] | + + + | Address | Unknown | + + + | Phone | Unavailable | + + + Support + + + + + | Name | Relationship | Address | Phone | + + + + + | Garry Rios | ECON | | | | | | [place] | | | | | [address] | | + + + + + | Chad Rios | ECON | Unknown | | + + + + + Care Team Providers + +------+ + | Care Supervisor Ship Maintenance Services Name | Role | Phone | + +------+ + | Anoop Rose MD | PCP | | + +------+ + Encounter Details +--------+---------+ + + + | Date | Type | Department | Care Team | Description | +--------+---------+ + + + | 10/27/ | Office | [facility] | Jose Luciano MD | Dermatochalasis of | | 2018 | Visit | [facility] | [address] | both upper eyelids | | | | [address] | [address] [place], [place] | (Primary Dx); [address] | | | | [address] [place] | [address] | ptosis | | | | [facility] | [phone] | | | | | [place], [place] | | | | | | [address] | | | | | | [phone] | | | +--------+---------+ + + + [...] I have reviewed and edited history and materials engineering technician documentation, and performed all elements to above examination documentation. Jose Luciano M.D. Lead Printer Ophthalmic Facial Plastic and Reconstructive Surgery documented in this encounter Plan of Treatment Not on filedocumented as of this encounter Procedures + +--------+ + + + | Procedure Name | Priori | Date/Time | Associated Diagnosis | Comments | | | ty | | | | + +--------+ + + + | [place] VISUAL FIELD | Routin | 10/27/2017 | Dermatochalasis of | | | EXAM, LIMITED | e | 11:58 AM | both upper eyelids | | | | | PDT | Brow ptosis | | + +--------+ + + + | [place] EXTERNAL PHOTOS | Routin | 10/27/2017 | [...]
--- OUTSIDE RECORDS SUMMARY | ~2018-07-13 | XMS | Encounter Summary ---
Demographics + + + | Address | [address] | | | [place] [address] | + + + | Home Phone | | + + + | Preferred Language | Unknown | + + + | Marital Status | | + + + | Orthodoxy Affiliation | MET | + + + | Race | White | + + + | Ethnic Group | Not or | + + + Author + + + | Author | [facility] | + + + | Organization | [facility] | + + + | Address | Unknown | + + + | Phone | Unavailable | + + + Support + + + + + | Name | Relationship | Address | Phone | + + + + + | Garry Rios | ECON | | | | | | [place] | | | | | [address] | | + + + + + | Chad Rios | ECON | Unknown | | + + + + + Care Team Providers + +------+ + | Care Field Service Consultant Name | Role | Phone | + +------+ + | Anoop Rose MD | PCP | | + +------+ + Encounter Details +--------+ + + + + | Date | Type | Department | Care Team | Description | +--------+ + + + + | 12/18/ | Procedure | [facility] | | | | 2018 | [place] | [address] | | | | | | [place] | | | | | | [facility] | | | | | | [place] [address] | | | +--------+ + + + [...]
--- OUTSIDE RECORDS SUMMARY | ~2018-07-13 | XMS | Encounter Summary ---
Demographics + + + | Address | [address] | | | [place] [address] | + + + | Home Phone | | + + + | Preferred Language | Unknown | + + + | Marital Status | | + + + | Yazdanism Affiliation | MET | + + + | Race | White | + + + | Ethnic Group | Not or | + + + Author + + + | Author | [facility] | + + + | Organization | [facility] | + + + | Address | Unknown | + + + | Phone | Unavailable | + + + Support + + + + + | Name | Relationship | Address | Phone | + + + + + | Garry Rios | ECON | | | | | | [place] | | | | | [address] | | + + + + + | Chad Rios | ECON | Unknown | | + + + + + Care Team Providers + +------+ + | Care Distribution Driver Name | Role | Phone | + +------+ + | Anoop Rose MD | PCP | | + +------+ + Encounter Details +--------+ + + + + | Date | Type | Department | Care Team | Description | +--------+ + + + + | 07/08/ | Telephone | [facility] | Jose Luciano MD | | | 2019 | | [place] | [address] | | | | | Oculoplastics at | Blvd [place], [place] | | | | | [address] | [address] | | | | | [address] | [phone] | | | | | Mailcode: [facility] | | | | | | [place], [place] | | | | | | [address] | | | | | | [phone] | | | +--------+ + + + [...]
--- OUTSIDE RECORDS SUMMARY | ~2018-07-13 | XMS | Encounter Summary ---
Demographics + + + | Address | [address] | | | [place] [address] | + + + | Home Phone | | + + + | Preferred Language | Unknown | + + + | Marital Status | | + + + | Restorationist Affiliation | MET | + + + [...] [place] | | | | | [address] | | + + + + + | Chad Rios | ECON | Unknown | | + + + + + Care Team Providers + +------+ + | Care Market Research Associate Name | Role | Phone | + [...] testing | | 2018 | on | [place] | [address] | | | | | Oculoplastics at | [place], [place] | | | | | [place] [address] [address] | [address] | | | | | [address] [facility] | [phone] | | | | | Mailcode: [facility] | | | | | | [place], [place] | | | | | | [address] | | | | | | [phone] | | | +--------+ + + + [...]
--- OUTSIDE RECORDS SUMMARY | ~2018-07-13 | XMS | Encounter Summary ---
Demographics + + + | Address | [address] | | | [place] [address] | + + + | Home Phone | | + + + | Preferred Language | Unknown | + + + | Marital Status | | + + + | Lutheran Affiliation | MET | + + + | Race | White | + + + | Ethnic Group | Not or | + + + Author + + + | Author | [facility] | + + + | Organization | [facility] | + + + | Address | Unknown | + + + | Phone | Unavailable | + + + Support + + + + + | Name | Relationship | Address | Phone | + + + + + | Garry Rios | ECON | | | | | | [place] | | | | | [address] | | + + + + + | Chad Rios | ECON | Unknown | | + + + + + Care Team Providers + +------+ + | Care Bus Monitor Name | Role | Phone | + [...] + + | 12/18/ | Hospital | [facility] | Jose Luciano MD | | | 2018 | Encounter | [facility] [address] | [address] | | | | [address] | [address] [place], [place] | | | | | [facility] [place] | [address] | | | | | [address] | [phone] | | | | | [place] [address] | | | | | | [phone] | | | +--------+ + + + [...] and holidays, call and as k the crusher and blender operator to page the Eye Doctor assembler carbon brushes. Return appointment date: Jose Luciano MD Thursday [...] | 1 | 12/19/19 | | | [id number] | eyelid incisions | | | 18 [...] | | | well. Jose Luciano M.D. Glass Block Bender Ophthalmic | | | Facial Plastic and [...]
--- OUTSIDE RECORDS SUMMARY | ~2018-07-13 | XMS | Encounter Summary ---
Demographics + + + | Address | [address] | | | [place] [address] | + + + | Home Phone | | + + + | Preferred Language | Unknown | + + + | Marital Status | | + + + | Mosque Affiliation | MET | + + + | Race | White | + + + | Ethnic Group | Not or | + + + Author + + + | Author | [facility] | + + + | Organization | [facility] | + + + | Address | Unknown | + + + | Phone | Unavailable | + + + Support + + + + + | Name | Relationship | Address | Phone | + + + + + | Garry Rios | ECON | | | | | | [place] | | | | | [address] | | + + + + + | Chad Rios | ECON | Unknown | | + + + + + Care Team Providers + +------+ + | Care Steel Inspector Name | Role | Phone | + +------+ + | Anoop Rose MD | PCP | | + +------+ + Reason for Visit + + + | Reason | Comments | + + + | Pre-Admission | | + + + Encounter Details +--------+ + + + + | Date | Type | Department | Care Team | Description | +--------+ + + + + | 10/30/ | PreAdmit | [facility] | Jose Luciano MD | Pre-Admission | | 2018 | Orders | [place] | [address] | | | | | Oculoplastics at | Blvd [place], [place] | | | | | [place] [address] [address] | [address] | | | | | [address] [facility] | [phone] | | | | | Mailcode: [facility] | | | | | | [place], [place] | | | | | | [address] | | | | | | [phone] | | | +--------+ + + + [...] + + | Degenerative disorder of eyelid - Primary Unspecified degenerative disorder of eyelid | + + documented in this encounter"
--- OUTSIDE RECORDS SUMMARY | ~2018-07-13 | XMS | Encounter Summary ---
Demographics + + + | Address | [address] | | | [place] [address] | + + + | Home Phone | | + + + | Preferred Language | Unknown | + + + | Marital Status | | + + + | Quaker Affiliation | MET | + + + | Race | White | + + + | Ethnic Group | Not or | + + + Author + + + | Author | [facility] | + + + | Organization | [facility] | + + + | Address | Unknown | + + + | Phone | Unavailable | + + + Support + + + + + | Name | Relationship | Address | Phone | + + + + + | Garry Rios | ECON | | | | | | [place] | | | | | [address] | | + + + + + | Chad Rios | ECON | Unknown | | + + + + + Care Team Providers + +------+ + | Care Photo Specialist Name | Role | Phone | + [...] [place] | | | | | | [facility] | | | | | | [place] [address] | | | +--------+ + + + [...]
--- OUTSIDE RECORDS SUMMARY | ~2018-07-13 | XMS | Encounter Summary ---
Demographics + + + | Address | [address] | | | [place] [address] | + + + | Home Phone [...] [place] | | | | | [address] | | + + + + + | Chad Rios | ECON | Unknown | | + + + + + Care Team Providers + +------+ + | Care Shaft Repairer Name | Role | Phone | + +------+ + | Anoop Rose MD | PCP | | + +------+ + Encounter Details +--------+ + + + + | Date | Type | Department | Care Team | Description | +--------+ + + + + | 12/19/ | Telephone | [facility] | Jose Luciano MD | | | 2018 | | [place] | [address] | | | | | Oculoplastics at | Blvd [place], [place] | | | | | [address] | [address] | | | | | [address] | [phone] | | | | | Mailcode: [facility] | | | | | | [place], [place] | | | | | | [address] | | | | | | [phone] | | | +--------+ + + + [...]
--- OUTSIDE RECORDS SUMMARY | ~2018-07-13 | XMS | Encounter Summary ---
Demographics + + + | Address | [address] | | | [place] [address] | + + + | Home Phone | | + + + | Preferred Language | Unknown | + + + | Marital Status | | + + + | Mormonism Affiliation | MET | + + + [...] [place] | | | | | [address] | | + + + + + | Chad Rios | ECON | Unknown | | + + + + + Care Team Providers + +------+ + | Care Investment Executive Name | Role | Phone | + [...] Pre-Admission | | 2018 | Orders | [facility] | [address] | | | | | Oculoplastics at | [address] [place], [place] | | | | | [place] [address] [address] | [address] | | | | | [address] [facility] | [phone] | | | | | Mailcode: [facility] | | | | | | [place], [place] | | | | | | [address] | | | | | | [phone] | | | +--------+ + + + [...]
--- OUTSIDE RECORDS SUMMARY | ~2018-07-13 | XMS | Encounter Summary ---
Demographics + + + | Address | [address] | | | [place] [address] | + + + | Home Phone | | + + + | Preferred Language | Unknown | + + + | Marital Status | | + + + | Evangelical Affiliation | MET | + + + | Race | White | + + + | Ethnic Group | Not or | + + + Author + + + | Author | [facility] | + + + | Organization | [facility] | + + + | Address | Unknown | + + + | Phone | Unavailable | + + + Support + + + + + | Name | Relationship | Address | Phone | + + + + + | Garry Rios | ECON | | | | | | [place] | | | | | [address] | | + + + + + | Chad Rios | ECON | Unknown | | + + + + + Care Team Providers + +------+ + | Care Director Equipment Name | Role | Phone | + +------+ + | Unknown | PCP | Unavailable | + +------+ + Encounter Details +--------+ + + + + | Date | Type | Department | Care Team | Description | +--------+ + + + + | 10/20/ | Abstract | [facility] | Jose Luciano MD | | | 2018 | | Roy | [address] | | | | | Oculoplastics at | [place], [place] | | | | | [address] | [address] | | | | | [address] | [phone] | | | | | Mailcode: [facility] | | | | | | [place], [place] | | | | | | [address] | | | | | | [phone] | | | +--------+ + + + [...]
--- OUTSIDE RECORDS SUMMARY | ~2018-07-13 | XMS | Encounter Summary ---
Demographics + + + | Address | [address] | | | [place] [address] | + + + | Home Phone | | + + + | Preferred Language | Unknown | + + + | Marital Status | | + + + | Restorationism Affiliation | MET | + + + [...] [place] | | | | | [address] | | + + + + + | Chad Rios | ECON | Unknown | | + + + + + Care Team Providers + +------+ + | Care Event Crew Technician Name | Role | Phone | + +------+ + | Anoop Rose MD | PCP | | + +------+ + Encounter Details +--------+ + + + + | Date | Type | Department | Care Team | Description | +--------+ + + + + | 07/08/ | Telephone | [facility] | Jose Luciano MD | | | 2019 | | [facility] | [address] | | | | | Oculoplastics at | [address] [place], [place] | | | | | [address] | [address] | | | | | [address] | [phone] | | | | | Mailcode: [facility] | | | | | | [place], [place] | | | | | | [address] | | | | | | [phone] | | | +--------+ + + + [...]
--- OUTSIDE RECORDS SUMMARY | ~2018-07-13 | XMS | Encounter Summary ---
Demographics + + + | Address | [address] | | | [place] [address] | + + + | Home Phone | | + + + | Preferred Language | Unknown | + + + | Marital Status | | + + + | Mormon Affiliation | MET | + + + [...] [place] | | | | | [address] | | + + + + + | Chad Rios | ECON | Unknown | | + + + + + Care Team Providers + +------+ + | Care Publication Distributor Name | Role | Phone | + +------+ + | Anoop Rose MD | PCP | | + +------+ + Encounter Details +--------+---------+ + + + | Date | Type | Department | Care Team | Description | +--------+---------+ + + + | 12/29/ | Office | [facility] | Jose Luciano MD | Dermatochalasis of | | 2018 | Visit | [facility] | [address] | both upper eyelids | | | | [address] | [address] [place], [place] | (Primary Dx) | | | | [facility] | [address] | | | | | [facility] | [phone] | | | | | [place], [place] | | | | | | [address] | | | | | | [phone] | | | +--------+---------+ + + + [...] Dr. Pacheco for eye care RTC with [place] prn Physician attestation: I have reviewed and edited history and detail technician documentation, and performed all elements to above examination documentation. Jose Luciano M.D. Geomorphologist Ophthalmic Facial Plastic and Reconstructive Surgery documented in this encounter Plan of Treatment Not on filedocumented as of this encounter Visit Diagnoses + + | Diagnosis | + + | Dermatochalasis of both upper eyelids - Primary | + + documented in this encounter"
[~2018-07-13 12:22] MED LIST: ADVIL200 MG PO; CITRACAL + D C1 EACH PO; FISH OIL 1,0001 EAC1 PO; HYDROCHLOROTHIA25 MG PO; LISINOPRIL10 MG PO; PERCOCET 7.5-31 EACH PO; POTASSIUM CHLO20 ME1 PO; PRILOSEC20 MG PO; SYNTHROID88 MCG PO; VENLAFAXINE H37.5 M2 PO
--- OUTSIDE RECORDS SUMMARY | 2018-07-13 12:26 | XMS ---
PreManage Notification: SANTINO CABEZAS Security Infusion Rn Events No recent Security Events currently on file CRITERIA MET - [facility] 2 Visits in 30 Days CARE PROVIDERS ANCELMO PIERSON [facility] Current PHONE: [phone] ANCELMO PIERSON Primary Care Current PHONE: Unknown Bryn has no Care Guidelines for this patient. Neena VISIT COUNT (12 MO.) [address] [place] [address] TOTAL 2 NOTE: Visits indicate total known visits. ED/UCC VISIT TRACKING (12 MO.) 07/13/2018 12:23 [facility] [place] TYPE: Emergency COMPLAINT: - CHEST TIGHTNESS/PRESSURE/LEFT ARM TINGLING 06/19/2018 10:37 [facility] [place] TYPE: Emergency DIAGNOSES: - Chest pain, unspecified - ABDOMINAL PAIN;DIZZY - Epigastric pain INPATIENT VISIT TRACKING (12 MO.) No inpatient visits to display in this time frame [id number]
[2018-07-13] MEDS ORDERED: NITROGLYCERIN0.4 MG SL (12:42)
[2018-07-13] MEDS ORDERED: ESTRADIOL1 MG PO (12:42)
[2018-07-13] MEDS ORDERED: DILTIAZEM HCL30 MG PO (12:42)
--- NOTE | 2018-07-14 20:37 | EKG ---
[facility] [address] [facility] [place] [address] Signed Normal sinus rhythm Normal ECG No previous ECGs available Confirmed by BOYD VALENTE MD ([id number]) on 07/14/2018 8:37:13 PM Electronically Signed By: BOYD VALENTE MD 07/14/18 2037 PATIENT NAME: SANTINO CABEZAS Electrocardiogram DATE OF : 47 PHYSICIAN: BOYD VALENTE MD REPORT #: [id number] REPORT IS CONFIDENTIAL AND NOT TO BE RELEASED WITHOUT AUTHORIZATION
== END 2018-07-13 16:04 | disposition short-term general hospital (02) ==
LOC: ED 12:22
DX: R07.89 Other chest pain (principal); R94.39 Abnormal result of other cardiovascular function study; I10 Essential (primary) hypertension; E03.9 Hypothyroidism, unspecified; K21.9 Gastro-esophageal reflux disease without esophagitis; Z90.710 Acquired absence of both cervix and uterus; Z90.89 Acquired absence of other organs; Z79.899 Other long term (current) drug therapy
CPT/HCPCS: 71046; 80053; 83735; 84484; 85025; 93005; 93010; 99285-25

== ENCOUNTER 2019-04-11 06:30 | Day surgery (SDC) | payer MEDICARE, OTHER ==
[~2019-04-11] VITALS: Ht 154.9 cm; Wt 72.6 kg
[~2019-04-11 06:30] MED LIST changes: +CITRACAL + BON1 EACH PO; +DILTIAZEM HCL30 MG PO; +ESTRADIOL1 MG PO; +NITROGLYCERIN0.4 MG SL
--- NOTE | 2019-04-11 08:12 | NUR ---
04/11/19 0812 Yash Epperson REPOSITIONED PT IN BED AND RETUNED HEARING AIDS TO PT. SIPS OF WATER GIVEN WITOUT PROBLEMS.
--- NOTE | 2019-04-12 14:11 | OR ---
[facility] [address] [place], [place] [address] Signed DATE OF OPERATION: 04/11/2019 SURGEON: Andrew Lawton MD PREOPERATIVE DIAGNOSES: Longstanding gastroesophageal reflux with small hiatal hernia. Recently persistent substernal burning pain with cardiac workup negative. POSTOPERATIVE DIAGNOSES: 1. Small hiatal hernia. No evidence of active esophagitis. 2. Gastric polyps and antral gastritis without ulceration. PROCEDURE: Esophagogastroduodenoscopy with biopsy. ANESTHESIA: Intravenous sedation, fentanyl 100 mcg, Versed 2 mg. INDICATION: This 74-year-old white woman is a patient of Dr. Rose and known to me from the past. She last underwent upper endoscopy in 2014. She is known to have a small hiatal hernia. In the past year, she has had issues of substernal pain, for which, full cardiac workup including ultimately an angiogram was negative. She is known to have reflux symptoms, generally well controlled with omeprazole. She is admitted at this time to undergo upper endoscopy. Her last upper endoscopy was in 2014 showing only the small hiatal hernia without sign of stricture. She is presumed to possibly have esophageal spasm. Her medicine does include diltiazem. She understands the risks of upper endoscopy including but not limited to bleeding, infection, and perforation, and wished to proceed. FINDINGS: The vocal cords were normal. Rugal folds were normal as was antral motility. She had erythematous streaking of the antrum and findings consistent with chronic antral gastritis. She had proximal gastric polyps, likely related to PPI use. One customer counter representative polyp was excised. The distal esophagus did not look particularly inflamed. The Z-line was somewhat flattened. She had no Rowland's epithelium. CLOtest was -15 minutes postprocedure. DESCRIPTION OF PROCEDURE: The patient was brought to the endoscopy suite and given topical Hurricaine spray Electronically Signed By: ANDREW LAWTON MD 04/12/19 1411 PATIENT NAME: SANTINO CABEZAS OPERATIVE REPORT DATE OF : 47 REPORT #: [id number] PHYSICIAN: ANDREW LAWTON MD PCP: ANCELMO ROSE MD REPORT IS CONFIDENTIAL AND NOT TO BE RELEASED WITHOUT AUTHORIZATION [facility] [address] [place], [place] [address] Signed hypopharyngeal anesthesia and placed in lateral decubitus position. She was given intravenous sedation to the point of slurred speech and nystagmus with full cardiopulmonary monitoring. A bite block was placed. An Olympus video upper endoscope was passed in the hypopharynx. The vocal cords appeared normal. The scope was advanced to the esophagus without problem. Examination throughout showed it to be normal. The distal portion showed a flattened Z-line. This was healed esophagitis. The scope was passed to the stomach. Rugal folds appeared normal. Antral motility was normal. Pylorus was normal, though there was erythematous streaking leading to it. The scope was easily passed in the duodenum. The duodenum was normal. Biopsies were taken to assess for celiac disease. The scope was withdrawn carefully through the pylorus, showing no sign of pathology. Biopsies were then taken of the antrum, which had mild chronic gastritis. Retroflexed view showed a small hiatal hernia. There were multiple upper gastric polyps. A customer counter representative polyp was excised. Biopsies were taken of the antrum for both DHIRAJ and pathologic testing. The scope was withdrawn to the distal esophagus. Narrow band imaging confirmed reasonably normal mucosa. Biopsies were obtained nevertheless. The scope was withdrawn to the mid esophagus and biopsies taken as well. Scope was withdrawn and removed. The patient was taken to recovery room in good condition. CONCLUDING DIAGNOSES: Mild antral gastritis, small hiatal hernia, and gastric polyps. PLAN: Recommend continued use of PPI medication of Prilosec. We will give Carafate 1 g p.o. q.i.d. on empty stomach and return to see me in eight weeks and assess progress as she may have antral gastritis that is accounting for some of her symptoms. MD UNRULY Carey/LEAHL /[id number] cc: Ancelmo Rose MD Copies: ANCELMO ROSE MD Electronically Signed By: ANDREW LAWTON MD 04/12/19 1411 PATIENT NAME: SANTINO CABEZAS OPERATIVE REPORT DATE OF : 47 REPORT #: [id number] PHYSICIAN: ANDREW LAWTON MD PCP: ANCELMO ROSE MD REPORT IS CONFIDENTIAL AND NOT TO BE RELEASED WITHOUT AUTHORIZATION [facility] [address] [place] [address] [place] [address] Signed ~ Electronically Signed By: ANDREW LAWTON MD 04/12/19 1411 PATIENT NAME: SANTINO CABEZAS HARDEEP OPERATIVE REPORT DATE OF : 47 REPORT #: [id number] PHYSICIAN: ANDREW LAWTON MD PCP: ANCELMO ROSE MD REPORT IS CONFIDENTIAL AND NOT TO BE RELEASED WITHOUT AUTHORIZATION
--- NOTE | 2019-04-12 16:33 | PATH ---
[facility] [address] [place], [place] [address] Signed SPECIMEN(S): A DUODENUM SPECIMEN(S): B ANTRUM/PYLORUS SPECIMEN(S): C GASTRIC POLYP SPECIMEN(S): D LOWER ESOPHAGUS SPECIMEN(S): E MIDDLE ESOPHAGUS SPECIMEN SOURCE: A. DUODENUM B. ANTRUM/PYLORUS C. GASTRIC POLYP D. LOWER ESOPHAGUS E. MIDDLE ESOPHAGUS CLINICAL HISTORY: Pre: GERD. Post: Hiatal hernia, antral gastritis. MICROSCOPIC DESCRIPTION: Histologic sections of all submitted blocks are examined by light microscopy. These findings, together with the gross examination, support the pathologic diagnosis. FINAL PATHOLOGIC DIAGNOSIS: A. Duodenum, biopsy: - Duodenal mucosa with mild increased lamina propria chronic inflammation. - Negative for dysplasia or malignancy. B. Stomach, antrum/pylorus, biopsy: - Antral mucosa with reactive gastropathy. - Negative for Helicobacter organisms on HE stain. C. Stomach, polyp, polypectomy: - Minute fragment of fundic gland polyp. D. Esophagus, lower, biopsy: - Squamous mucosa with changes consistent with mild reflux esophagitis. - Negative for intestinal metaplasia, dysplasia, or malignancy. E. Esophagus, middle, biopsy: - Fragments of squamous mucosa with minimal chronic inflammation and reactive changes. - Negative for intestinal metaplasia, dysplasia, or malignancy. NAL:cml:C2NR GROSS DESCRIPTION: Five specimens are received in five containers, labeled "VR." A. The specimen, labeled "VR, duodenum," per requisition, is received in PATIENT NAME: SANTINO CABEZAS PATHOLOGY DATE OF : 47 REPORT #: [id number] PHYSICIAN: JAMIL BREWSTER PCP: ANCELMO PIERSON MD REPORT IS CONFIDENTIAL AND NOT TO BE RELEASED WITHOUT AUTHORIZATION [facility] [address] [place], [place] [address] Signed formalin and consists of a single bertrand soft tissue fragment that measures 0.3 cm in greatest dimension. The specimen is entirely submitted in cassette (A1). B. The specimen, labeled "VR, antrum/pylorus," per requisition, is received in formalin and consists of a single bertrand soft tissue fragment that measures 0.3 cm in greatest dimension. The specimen is entirely submitted in cassette (B1). C. The specimen, labeled "VR, gastric polyp," per requisition, is received in formalin and consists of two bertrand soft tissue fragments that measure 0.3 cm in greatest dimension. The specimen is entirely submitted in cassette (C1). D. The specimen, labeled "VR, lower esophagus" per requisition, is received in formalin and consists of two bertrand soft tissue fragments that measure 0.3 cm in greatest dimension. The specimen is entirely submitted in cassette (D1). E. The specimen, labeled "VR, middle esophagus," per requisition, is received in formalin and consists of multiple bertrand soft tissue fragments that measure 0.4 cm in greatest dimension. The specimen is entirely submitted in cassette (E1). AT (under the direct supervision of a pathologist) The Gross Description was prepared using a voice recognition system. The report was reviewed for accuracy; however, sound-alike word errors, addition and/or deletions may occur. If there is any question about this report, please contact Client Services. PERFORMING LABORATORY: The technical component was performed by [employer], [address] [place] [id number] (Corporate Lawyer: Lissa Jorge MD; CLIA# [id number]). Professional interpretation was performed by [employer], [facility], [address] [address] (CLIA# [id number]). Diagnostician: Blanca Sánchez MD Pathologist Electronically Signed 04/12/2019 Copies: ~ PATIENT NAME: SANTINO CABEZAS PATHOLOGY DATE OF : 47 REPORT #: [id number] PHYSICIAN: JAMIL PATHOLOGY PCP: ANCELMO PIERSON MD REPORT IS CONFIDENTIAL AND NOT TO BE RELEASED WITHOUT AUTHORIZATION
== END 2019-04-11 08:27 | disposition home or self-care (01) ==
LOC: DS 06:30 → OPS 06:30 → DS 06:45 → OPS 06:45
PROVIDERS: Surgery
PROC: 0DB78ZX Excision of Stomach, Pylorus, Via Natural or Artificial Opening Endoscopic, Diagnostic (ICD-10-PCS; 2019-04-11)
PROC: 0DB68ZX Excision of Stomach, Via Natural or Artificial Opening Endoscopic, Diagnostic (ICD-10-PCS; 2019-04-11)
PROC: 0DB38ZX Excision of Lower Esophagus, Via Natural or Artificial Opening Endoscopic, Diagnostic (ICD-10-PCS; 2019-04-11)
PROC: 0DB28ZX Excision of Middle Esophagus, Via Natural or Artificial Opening Endoscopic, Diagnostic (ICD-10-PCS; 2019-04-11)
PROC: 0DB98ZX Excision of Duodenum, Via Natural or Artificial Opening Endoscopic, Diagnostic (ICD-10-PCS; principal; 2019-04-11 06:45)
DX: K21.0 Gastro-esophageal reflux disease with esophagitis (principal); K29.80 Duodenitis without bleeding; K29.70 Gastritis, unspecified, without bleeding; K31.7 Polyp of stomach and duodenum; K44.9 Diaphragmatic hernia without obstruction or gangrene; K31.89 Other diseases of stomach and duodenum; E03.9 Hypothyroidism, unspecified; M19.90 Unspecified osteoarthritis, unspecified site; K22.4 Dyskinesia of esophagus; I10 Essential (primary) hypertension; Z79.899 Other long term (current) drug therapy; Z98.890 Other specified postprocedural states
CPT/HCPCS: 99153; G0500; J2250; J3010; J7121